=== PATIENT | female | born 1995 | race African-American/Black ===

== ENCOUNTER 2023-07-06 17:08 | Emergency (ER) | payer MEDICAID ==
[~2023-07-06] VITALS: Ht 165.1 cm; Wt 83.9 kg
[2023-07-06] MEDS ORDERED: SUMATRIPTAN SUCCINATE 6 MG/0.5 ML VIAL SQ ONE ×2 (17:30→17:42)
[2023-07-06] MEDS ORDERED: MECLIZINE HCL 12.5 MG TABLET PO ONE (17:30)
[2023-07-06] MEDS ORDERED: MECLIZINE HCL 25 MG TABLET ONE (17:42)
[2023-07-06] MEDS ORDERED: IBUP-1953 PO (19:21)
[2023-07-06 19:27] VITALS: BP 106/59; TEMP 98.2; O2SAT 99
== END 2023-07-06 19:27 | disposition home or self-care (01) ==
LOC: ER 17:43
DX: R51.9 Headache, unspecified (principal)
CPT/HCPCS: 99285; 70450; 96372; J8597; J3030

== ENCOUNTER 2023-11-03 12:58 | Emergency (ER) | payer MEDICAID, OTHER ==
[~2023-11-03] VITALS: Ht 162.6 cm; Wt 82.6 kg
[~2023-11-03 12:58] MED LIST: IBUP-1953 PO
[2023-11-03 13:31] VITALS: BP 121/65; TEMP 98.3; O2SAT 100
== END 2023-11-03 14:42 | disposition left against medical advice (07) ==
LOC: ER 13:06
DX: M25.562 Pain in left knee (principal); Z53.21 Procedure and treatment not carried out due to patient leaving prior to being seen by health care provider

== ENCOUNTER 2023-11-06 13:45 | Emergency (ER) | payer OTHER ==
[~2023-11-06] VITALS: Ht 162.6 cm; Wt 81.6 kg
[2023-11-06] MEDS ORDERED: LIDOCAINE HCL/PF 1% 30 ML VIAL TP ONE (15:00)
[2023-11-06] MEDS ORDERED: LIDOCAINE HCL/PF 2 % 5ML SDV 5 ML VIAL ONE (15:26)
[2023-11-06] MEDS ORDERED: TDAP [DIPH/PERTUSSIS/TET] 0.5 ML VIAL IM ONE ×2 (15:56→16:00)
[2023-11-06 16:17] VITALS: BP 128/74; TEMP 98.5; O2SAT 100
== END 2023-11-06 16:18 | disposition home or self-care (01) ==
LOC: ER 13:51
DX: S61.213A Laceration without foreign body of left middle finger without damage to nail, initial encounter (principal); M25.562 Pain in left knee; W25.XXXA Contact with sharp glass, initial encounter; Y93.89 Activity, other specified; Y92.89 Other specified places as the place of occurrence of the external cause; Y99.8 Other external cause status
CPT/HCPCS: 12001; 90471; 90715; 99283; A4649; J3490